=== PATIENT | male | born 1975 | race Two or more races ===

== ENCOUNTER 2022-07-12 15:26 | Emergency (ER) | payer BC ==
--- NOTE | 2022-07-12 15:40 | NUR ---
CALLED [phone] NO ANSWER.
--- NOTE | 2022-07-12 15:40 | NUR ---
CALLED TO TRIAGE,NO ANSWER
--- NOTE | 2022-07-12 17:30 | NUR ---
CALLED TO TRIAGE,NO ANSWER
== END 2022-07-12 17:55 | disposition left against medical advice (07) ==
LOC: ER 15:28
DX: Z53.21 Procedure and treatment not carried out due to patient leaving prior to being seen by health care provider (principal)